=== PATIENT | male | born 1965 | race Caucasian/White ===

== ENCOUNTER → 2017-07-02 15:34 | Outpatient (CLI) | payer BC, SELFPAY ==
--- NOTE | 2017-07-02 15:39 | MR_ITS ---
MR lumbar spine wo con HISTORY: Low back pain with left leg pain and burning and numbness. Left foot numbness ORDERING PHYSICIAN: Riley Castanon PATIENT AGE: 52 years COMPARISON: Radiograph in 03 14 2008 TECHNIQUE: Standard multiplanar multiecho sequences are performed without contrast. 3-D MIP and myelographic images are also rendered and reviewed FINDINGS: There is normal alignment. The spinal cord ends at the L1-L2 level. L1-L2: Unremarkable. L2-L3: Minimal bulging disc. L3-L4: Mild broad-based concentric bulging disc lung facet and ligamentum flavum hypertrophy with mild bilateral lateral recess narrowing. Small left lateral disc osteophyte complex with mild left-sided foraminal narrowing. L4-L5: Degenerative disc disease with bulging disc along with facet and ligamentum flavum hypertrophy with [id number] right foraminal narrowing mild broad-based right-sided foraminal disc protrusion with narrowing of the right foramen. L5-S1: Degenerative disc disease with bulging disc. There is a small left paracentral disc herniation with impingement upon the left S1 nerve root and left lateral recess narrowing. Isointense signal is present along the posterior aspect of the disc herniation/protrusion. This area measures approximately 9 mm and could be related to a disc fragment which is impinging upon the left S1 nerve root. There is facet ligamentum hypertrophy with mild to moderate left foraminal narrowing and mild right foraminal narrowing. IMPRESSION: 1. L3-L4: Mild broad-based concentric bulging disc lung facet and ligamentum flavum hypertrophy with mild bilateral lateral recess narrowing. Small left lateral disc osteophyte complex with mild left-sided foraminal narrowing. 2. L4-L5: Degenerative disc disease with bulging disc along with facet and ligamentum flavum hypertrophy with [id number] right foraminal narrowing mild broad-based right-sided foraminal disc protrusion with narrowing of the right foramen. 3. L5-S1: Degenerative disc disease with bulging disc. There is a small left paracentral disc protrusion/herniation with impingement upon the left S1 nerve root and left lateral recess narrowing. Isointense signal is present along the posterior aspect of the disc herniation/protrusion. This area measures approximately 9 mm and could be related to a disc fragment which is impinging upon the left S1 nerve root. There is facet ligamentum hypertrophy with mild to moderate left foraminal narrowing and mild right foraminal narrowing
[2019-03-05 13:24] LABS: Anion Gap 11.7 mEq/L (5-15); Blood Urea Nitrogen 18 mg/dL (7-18); Calcium 9.3 mg/dL (8.5-10.1); Carbon Dioxide 28 mmol/L (21.0-32.0); Chloride 101 mmol/L (98-107); Creatinine,Serum 0.97 mg/dL (0.70-1.30); Estimated Glomerular Filt Rate 81 ml/min (>60); GFR (African American) 98 ML/MIN (>60); Glucose 91 mg/dL (74-106); Potassium 4.7 mmoL/L (3.5-5.1); Sodium 136 mmol/L (136-145)
== END ==
PROVIDERS: Family Provider Internal Medicine; PCP Internal Medicine; Visit Provider Internal Medicine
DX: M54.42 Lumbago with sciatica, left side (principal)
CPT/HCPCS: 36415; 72148; 76376; 80048

== ENCOUNTER → 2017-08-07 10:07 | Outpatient (POV) | payer BC, SELFPAY | PROVIDERS: Visit Provider Podiatrist | DX: Z00.00 Encounter for general adult medical examination without abnormal findings (principal) ==

== ENCOUNTER → 2017-08-13 14:03 | Outpatient (POV) | payer BC, SELFPAY | PROVIDERS: Visit Provider Neurological Surgery | DX: Z00.00 Encounter for general adult medical examination without abnormal findings (principal) ==

== ENCOUNTER → 2017-08-17 14:40 | Outpatient (CLI) | payer BC, SELFPAY ==
--- NOTE | 2017-08-17 16:48 | MR_ITS ---
MR lumbar spine wo con HISTORY: Interval development right foot drop, low back pain ITS.REASON: RT FOOT DROP ORDERING PHYSICIAN: Lakeisha Reddy PATIENT AGE: 52 years COMPARISON: MRI July 03, 2017 TECHNIQUE: Standard multiplanar multiecho sequences are performed without contrast. 3-D MIP and myelographic images are also rendered and reviewed FINDINGS: Normal alignment. Spinal cord ends at L1 level. L2-L3: Minimal bulging disc slightly eccentric towards the left. L3-L4: Degenerative disc disease with bulging disc along with facet and ligamentum hypertrophy with mild bilateral lateral recess and foraminal narrowing. L4-L5: There is a new right paracentral disc herniation with inferior extrusion of the disc compressing upon the right L5 nerve root.. There are degenerative disc disease at this level with bulging disc. Right-sided lateral recess and foraminal narrowing is present. L5-S1: Degenerative disc disease with broad-based bulging disc. There remains a broad-based left paracentral disc herniation with impingement upon the left S1 nerve root with left lateral recess and foraminal narrowing. The previously noted isointensity along the posterior aspect of the disc is not apparent on today's exam. The disc protrusion/herniation however slightly more prominent on today's study. IMPRESSION: 1. New right paracentral disc herniation at L4-5 with inferior extrusion of the disc compressing upon the right L5 nerve root.. There are degenerative disc disease at this level with bulging disc. Right-sided lateral recess and foraminal narrowing is present. 2. Degenerative disc disease with broad-based bulging disc and broad-based left paracentral disc herniation at L5-S1 with impingement upon the left S1 nerve root with left lateral recess and foraminal narrowing. The previously noted isointensity along the posterior aspect of the disc is not apparent on today's exam. The disc protrusion/herniation however slightly more prominent on today's study.
== END ==
PROVIDERS: Family Provider Internal Medicine; Visit Provider Physician Assistant Medical
DX: M21.371 Foot drop, right foot (principal)
CPT/HCPCS: 72148; 76376

== ENCOUNTER → 2017-09-11 12:58 | Outpatient (POV) | payer BC, SELFPAY | PROVIDERS: Family Provider Internal Medicine; Visit Provider Podiatrist | DX: Z00.00 Encounter for general adult medical examination without abnormal findings (principal) ==

== ENCOUNTER 2017-10-02 09:00 | Outpatient (RCR) | payer BC, SELFPAY | END 2017-10-02 09:01 | disposition home or self-care (01) | LOC: PT 09:00 | PROVIDERS: Family Provider Internal Medicine; Visit Provider Physician Assistant Medical | DX: M21.371 Foot drop, right foot (principal) | CPT/HCPCS: 97014; 97110; 97112; 97163; G0283 ==

== ENCOUNTER 2019-01-13 10:30 | Outpatient (RCR) | payer BC, SELFPAY | END 2019-01-13 10:35 | disposition home or self-care (01) | LOC: PT 10:30 | PROVIDERS: Visit Provider Internal Medicine | DX: M54.5 Low back pain (principal); R20.0 Anesthesia of skin; M54.32 Sciatica, left side | CPT/HCPCS: 97010; 97014; 97110; 97140; 97163; G0283 ==

== ENCOUNTER → 2019-03-05 10:32 | Outpatient (CLI) | payer BC, SELFPAY | PROVIDERS: Visit Provider Internal Medicine | DX: E87.1 Hypo-osmolality and hyponatremia (principal) ==

== ENCOUNTER → 2021-02-01 17:56 | Outpatient (CLI) | payer BC, SELFPAY ==
[2021-02-01 18:33] LABS: Basophils # 0.1 K/mm3 (0-0.2); Basophils % 1.1 % (0.1-2.0); Eosinophils # 0.3 K/mm3 (0.0-0.4); Eosinophils % 3.7 % (0.1-12.0); Hematocrit 40.1 % (42.0-52.0); Hemoglobin 13.2 g/dL (14.1-18.0); Lymphocytes # 2.5 K/mm3 (0.7-4.5); Mean Corpuscular HGB Conc 32.8 g/dL (31.8-35.4); Mean Corpuscular Hemoglobin 31.5 pg (27.0-31.2); Mean Platelet Volume 8.7 fl (7.4-10.4); Monocytes % 11.1 % (1.7-9.3); Neutrophils # 4.7 K/mm3 (1.8-7.8); Neutrophils % 55.1 % (37.0-80.0); Platelet Count 327 K/mm3 (142-424); Red Blood Count 4.18 M/mm3 (4.60-6.20); Red Cell Distribution Width 13.4 % (11.5-17.5); White Blood Count 8.6 K/mm3 (4.8-10.8)
[2021-02-01 19:04] LABS: Chloride 103 mmol/L (98-107); Potassium 4.1 mmoL/L (3.5-5.1); Sodium 139 mmol/L (136-145)
[2021-02-01 19:06] LABS: Alanine Aminotransferase 96 U/L (12-78); Aspartate Amino Transferase 41 U/L (17-59); Blood Urea Nitrogen 18 mg/dl (9-20); Estimated Glomerular Filt Rate 78 ml/min (>60); GFR (African American) 94 ML/MIN (>60)
[2021-02-01 19:07] LABS: Albumin Level 4.4 g/dl (3.5-5.0); Albumin/Globulin Ratio 1.5 (1.1-1.8); Alkaline Phosphatase 95 U/L (38-126); Anion Gap 16.1 mEq/L (5-15); Bilirubin,Total 0.3 mg/dl (0.2-1.3); Calcium 9.5 mg/dl (8.4-10.2); Carbon Dioxide 24 mmol/L (22.0-30.0); Chol/HDL Ratio 5.5 (1-3.5); Cholesterol 238 mg/dl (140-200); Globulin 2.9 g/dL (1.3-3.2); Glucose 102 mg/dl (74-100); HDL Cholesterol 43 mg/dl (40-60); Total Protein,Serum 7.3 g/dl (6.3-8.2)
[2021-02-01 19:09] LABS: Triglycerides 407 mg/dl (30-150)
[2021-02-01 21:15] LABS: Prostate Specific Ag Screen 1.1 ng/ml (0.0-4.0)
== END ==
PROVIDERS: Visit Provider Internal Medicine
DX: I10 Essential (primary) hypertension (principal); E78.5 Hyperlipidemia, unspecified; I73.9 Peripheral vascular disease, unspecified; M21.371 Foot drop, right foot; N40.1 Benign prostatic hyperplasia with lower urinary tract symptoms; Z12.5 Encounter for screening for malignant neoplasm of prostate
CPT/HCPCS: 80053; 80061; 85025; G0103

== ENCOUNTER → 2021-02-06 14:32 | Outpatient (CLI) | payer BC, SELFPAY ==
[2021-02-06 15:00] LABS: Influenza A, PCR Not Detected (NotDetected); Influenza B, PCR Not Detected (NotDetected)
[2021-02-06 15:26] LABS: Coronavirus 19, PCR Detected (NotDetected)
== END ==
PROVIDERS: PCP Internal Medicine; Visit Provider Internal Medicine
DX: Z20.822 Contact with and (suspected) exposure to COVID-19 (principal); U07.1 COVID-19
CPT/HCPCS: U0003

== ENCOUNTER 2021-02-10 07:41 | Outpatient (CLI) | payer BC, SELFPAY ==
[2021-02-10] VITALS (8 sets, daily range): BP systolic 121–134; BP diastolic 72–98; PULSE 62–75; RESP 16–20; TEMP 36.5–36.6; O2SAT 95–99
== END 2021-02-10 10:28 | disposition home or self-care (01) ==
LOC: INF 07:42
PROVIDERS: PCP Internal Medicine; Visit Provider Internal Medicine
DX: U07.1 COVID-19 (principal)
CPT/HCPCS: 96365

== ENCOUNTER → 2021-09-09 16:12 | Outpatient (CLI) | payer BC, SELFPAY ==
--- NOTE | 2021-09-09 16:17 | XR_ITS ---
FINAL REPORT TECHNIQUE: Chest PA & Lateral CLINICAL HISTORY: PLEURISY OF RIGHT LUNG FINDINGS: 2 views of the chest were performed. The heart size is normal. The mediastinum is within normal limits. There are chronic changes in the lung bases. There are no pleural effusions. There is no pneumothorax. The bony thorax appears intact. IMPRESSION: No acute cardiopulmonary process. Reviewed, Interpreted and Dictated by Reji Jimenez MD Transcribed by Sha Demarco Authenticated by Reji Jimenez MD on 09/09/2021 04:54:30 PM [facility]
== END ==
PROVIDERS: PCP Internal Medicine; Visit Provider Internal Medicine
DX: R09.1 Pleurisy
CPT/HCPCS: 71046

== ENCOUNTER → 2021-10-30 16:53 | Outpatient (CLI) | payer BC, SELFPAY ==
[2021-10-30 17:54] LABS: Alanine Aminotransferase 44 U/L (12-78); Albumin Level 4.2 g/dl (3.5-5.0); Albumin/Globulin Ratio 1.5 (1.1-1.8); Alkaline Phosphatase 75 U/L (38-126); Anion Gap 14.1 mEq/L (5-15); Aspartate Amino Transferase 36 U/L (17-59); Blood Urea Nitrogen 22 mg/dl (9-20); Calcium 9.4 mg/dl (8.4-10.2); Carbon Dioxide 23 mmol/L (22.0-30.0); Chloride 105 mmol/L (98-107); Chol/HDL Ratio 6.3 (1-3.5); Cholesterol 272 mg/dl (140-200); Estimated Glomerular Filt Rate 88 ml/min (>60); GFR (African American) 106 ML/MIN (>60); Globulin 2.8 g/dL (1.3-3.2); Glucose 92 mg/dl (74-100); HDL Cholesterol 43 mg/dl (40-60); Potassium 4.1 mmoL/L (3.5-5.1); Sodium 138 mmol/L (136-145); Triglycerides 290 mg/dl (30-150); VLDL Cholesterol 58 mg/dL (0-40)
[2021-10-30 17:58] LABS: Bilirubin,Total < 0.1 mg/dl (0.2-1.3)
[2021-10-30 18:06] LABS: Direct LDL Cholesterol 160.08 mg/dL (100-129)
[2021-10-30 18:26] LABS: Prostate Specific Ag Screen 1.2 ng/ml (0.0-4.0)
[2021-10-30 18:36] LABS: Basophils # 0.2 K/mm3 (0-0.2); Basophils % 1.7 % (0.1-2.0); Eosinophils # 0.4 K/mm3 (0.0-0.4); Hematocrit 37.5 % (42.0-52.0); Lymphocytes # 2.5 K/mm3 (0.7-4.5); Lymphocytes % 26.6 % (10-50); Mean Corpuscular HGB Conc 34.6 g/dL (31.8-35.4); Mean Corpuscular Hemoglobin 32.9 pg (27.0-31.2); Mean Corpuscular Volume 95.1 fl (80-94); Mean Platelet Volume 7.9 fl (7.4-10.4); Monocytes # 0.8 K/mm3 (0.1-1.0); Monocytes % 8.1 % (1.7-9.3); Neutrophils # 5.5 K/mm3 (1.8-7.8); Neutrophils % 59.5 % (37.0-80.0); Platelet Count 336 K/mm3 (142-424); Red Blood Count 3.95 M/mm3 (4.60-6.20); Red Cell Distribution Width 13.8 % (11.5-17.5); White Blood Count 9.3 K/mm3 (4.8-10.8)
--- NOTE | 2021-12-30 12:35 | PC.NURSE ---
I have talked with patient on multiply times and he has chosen to hold off at this time. Patient will call back at a later time.
--- NOTE | 2022-01-10 13:06 | PC.NURSE ---
I talked with Mr. Altman on the first of December and he stated that it was not a good time for him. He will call us back at a later time. When he is ready will have to do a new precert.
== END ==
PROVIDERS: PCP Internal Medicine; Visit Provider Internal Medicine
DX: I10 Essential (primary) hypertension (principal); E78.5 Hyperlipidemia, unspecified; R53.83 Other fatigue; G47.10 Hypersomnia, unspecified; R06.83 Snoring; N40.1 Benign prostatic hyperplasia with lower urinary tract symptoms; Z12.5 Encounter for screening for malignant neoplasm of prostate
CPT/HCPCS: 80053; 80061; 85025; G0103

== ENCOUNTER → 2022-09-25 12:47 | Outpatient (CLI) | payer BC, SELFPAY ==
--- NOTE | 2022-09-25 12:51 | MR_ITS ---
FINAL REPORT CLINICAL HISTORY: radiculopathy, lumbosacral region. low back pain with right leg pain/numbness COMPARISON: 08/17/2017 FINDINGS: Multiplanar MR imaging of the lumbar spine was performed without contrast. On the sagittal T2-weighted images, disc degeneration is seen at multiple levels. The vertebral alignment is normal. There is no evidence of fracture. No bony mass is identified. The conus has an unremarkable appearance. No significant central canal stenosis. T12-L1: There is no significant canal stenosis or neural foraminal narrowing. L1-2: There is no significant canal stenosis or neural foraminal narrowing. L2-3: Annular disc bulge, facet arthropathy, and osteophytes. Mild bilateral neural foraminal narrowing. L3-4: Annular disc bulge, facet arthropathy, and osteophytes. Mild bilateral neural foraminal narrowing. L4-5: Annular disc bulge and facet arthropathy. Moderate right and mild left neural foraminal narrowing. Interval resolution right foraminal inferior extruded disc. Presumed postoperative changes on the right. L5-S1: Annular disc bulge, facet arthropathy, and osteophytes. Postoperative changes on the right. Moderate bilateral neural foraminal narrowing. IMPRESSION: Degenerative disc disease as above, with postoperative changes at L4-5 and L5-S1. Reviewed, Interpreted and Dictated by Dallin Becker III, MD Transcribed by Soniya Lorenzana Authenticated and [facility]
== END ==
PROVIDERS: PCP Internal Medicine; Visit Provider Internal Medicine
DX: M47.27 Other spondylosis with radiculopathy, lumbosacral region (principal); R29.818 Other symptoms and signs involving the nervous system
CPT/HCPCS: 72148; 76376

== ENCOUNTER 2024-10-05 15:50 | Outpatient (CLI) | payer BC, SELFPAY ==
[2024-10-05 17:16] LABS: Basophils # 0.1 K/mm3 (0-0.2); Basophils % 0.9 % (0.1-2.0); Eosinophils # 0.4 Kmm3 (0.0-0.4); Eosinophils % 3.5 % (0.1-12.0); Hematocrit 39.1 % (42.0-52.0); Immature Granulocytes # 0.09 10^3uL; Immature Granulocytes % 0.9 %; Lymphocytes # 2.7 K/mm3 (0.7-4.5); Lymphocytes % 26.8 % (10-50); Mean Corpuscular HGB Conc 33.2 g/dL (31.8-35.4); Mean Corpuscular Hemoglobin 30.5 pg (27.0-31.2); Mean Corpuscular Volume 91.8 fl (80-94); Mean Platelet Volume 9.8 fl (7.4-10.4); Monocytes # 1.2 K/mm3 (0.1-1.0); Monocytes % 11.8 % (1.7-9.3); Neutrophils # 5.6 K/mm3 (1.8-7.8); Neutrophils % 56.1 % (37.0-80.0); Nucleated Red Blood Cells # 0 10^3/uL; Nucleated Red Blood Cells % 0 %; Platelet Count 319 K/mm3 (142-424); Red Blood Count 4.26 M/mm3 (4.60-6.20); Red Cell Distribution Width 12.6 % (11.5-17.5); Red Cell Distribution Width-SD 42.5 fL
[2024-10-05 17:36] LABS: Alanine Aminotransferase 86 U/L (12-78); Albumin Level 4.9 g/dl (3.5-5.0); Alkaline Phosphatase 79 U/L (38-126); Anion Gap 10.3 mEq/L (5-15); Aspartate Amino Transferase 40 U/L (17-59); Bilirubin,Total 0.4 mg/dl (0.2-1.3); Blood Urea Nitrogen 20 mg/dl (9-20); Calcium 9.8 mg/dl (8.4-10.2); Carbon Dioxide 25 mmol/L (22.0-30.0); Chloride 104 mmol/L (98-107); Chol/HDL Ratio 6.2 (1-3.5); Cholesterol 277 mg/dl (140-200); Estimated Glomerular Filt Rate 87 ml/min (>60); GFR (African American) 105 ML/MIN (>60); Globulin 2.4 g/dL (1.3-3.2); Glucose 91 mg/dl (74-100); HDL Cholesterol 45 mg/dl (40-60); Potassium 4.3 mmoL/L (3.5-5.1); Sodium 135 mmol/L (136-145); Total Protein,Serum 7.3 g/dl (6.3-8.2)
[2024-10-05 18:01] LABS: Triglycerides 403 mg/dl (30-150)
[2024-10-05 18:06] LABS: Prostate Specific Ag Screen 1.9 ng/ml (0.0-4.0)
[2024-10-05 23:43] LABS: Hemoglobin A1C 5.7 % (4.0-6.0)
== END 2024-10-05 23:59 | disposition home or self-care (01) ==
LOC: LAB.DROPOF 10-06 11:17
PROVIDERS: PCP Internal Medicine; Visit Provider Internal Medicine
DX: Z12.5 Encounter for screening for malignant neoplasm of prostate (principal); I10 Essential (primary) hypertension; E78.5 Hyperlipidemia, unspecified; E66.01 Morbid (severe) obesity due to excess calories; L30.9 Dermatitis, unspecified; Z83.3 Family history of diabetes mellitus; Z68.37 Body mass index [BMI] 37.0-37.9, adult
CPT/HCPCS: 80053; 80061; 83036; 85025; G0103

== ENCOUNTER 2025-01-18 16:15 | Outpatient (CLI) | payer BC, SELFPAY ==
[2025-01-18 17:40] LABS: Albumin Level 4.9 g/dl (3.5-5.0)
[2025-01-18 17:41] LABS: Chloride 100 mmol/L (98-107); Potassium 4.6 mmoL/L (3.5-5.1); Sodium 136 mmol/L (136-145)
[2025-01-18 17:43] LABS: Alanine Aminotransferase 90 U/L (12-78); Anion Gap 15.6 mEq/L (5-15); Aspartate Amino Transferase 50 U/L (17-59); Blood Urea Nitrogen 29 mg/dl (9-20); Carbon Dioxide 25 mmol/L (22.0-30.0); Creatinine,Serum 1.20 mg/dl (0.66-1.25); Estimated Glomerular Filt Rate 62 ml/min (>60); GFR (African American) 75 ML/MIN (>60)
[2025-01-18 17:44] LABS: Albumin/Globulin Ratio 1.6 (1.1-1.8); Alkaline Phosphatase 77 U/L (38-126); Bilirubin,Total 0.5 mg/dl (0.2-1.3); Calcium 10.0 mg/dl (8.4-10.2); Cholesterol 296 mg/dl (140-200); Globulin 3.0 g/dL (1.3-3.2); Glucose 97 mg/dl (74-100); HDL Cholesterol 46 mg/dl (40-60); Total Protein,Serum 7.9 g/dl (6.3-8.2); Triglycerides 355 mg/dl (30-150)
--- OUTSIDE RECORDS SUMMARY | 2025-01-19 12:06 | XMS_ITS | Clinical Summary ---
Author Organization [facility] Address [address] [place] [id number] Phone [email or web address] Care Team Providers Care Canteen Manager Name Role Phone Riley Castanon Primary Care Provider Unavailabl e Allergies No known active allergies Medications bisoprolol (ZEBETA) 5 MG tablet Take 5 mg by mouth 1 (one) time each day. 11/10/2019 Active diclofenac (VOLTAREN) 75 MG EC tablet Take 75 mg by mouth 2 (two) times a day. 11/09/2019 Active famotidine (PEPCID) 20 MG tablet Take 20 mg by mouth every night. 08/22/2019 Active HYDROcodone-camille taminophen (NORCO) 7.5-325 MG per tablet Take 1 tablet by mouth every 6 (six) hours if needed. for pain 08/20/2019 Active irbesartan-hydr oCHLOROthiazide (AVALIDE) 300-12.5 MG per tablet TAKE 1 TABLET BY MOUTH ONCE DAILY FOR 90 DAYS 11/11/2019 Active omeprazole (PriLOSEC) [address] capsule TAKE 1 CAPSULE BY MOUTH ONCE DAILY FOR 90 DAYS 09/26/2019 Active LORazepam (ATIVAN) 0.5 MG tablet TAKE 1 TABLET BY MOUTH TWICE DAILY NEEDED FOR NERVES 02/01/2021 Active amLODIPine (NORVASC) 5 MG tablet Take 5 mg by mouth every night. 11/29/2020 Active predniSONE (DELTASONE) 10 MG tablet TAKE 4 TABS IN THE MORNING FOR 5 DAYS THEN 3 TABS IN THE AM FOR 2 DAYS THEN 2 DAILY TABS FOR 2 DAYS THEN 1 TAB DAILY FOR 2 DAYS THEN STOP 02/06/2021 Active Livalo 4 MG tablet TAKE 1 TABLET BY MOUTH TWICE A WEEK 01/10/2021 Active Active Problems Problem Noted Date Diagnosed Date Health examination of defined subpopulation 10/2011 Overview (10/28/2017): Dysfunction of eustachian tube 11/06/2009 Overview (10/28/2017): Cellulitis and abscess of face 07/27/2009 Overview (10/28/2017): Other examination of ears and hearing 02/14/2009 Overview (10/28/2017): Examination for medicolegal reason 06/13/2008 Overview (10/28/2017): Screening for hypertension 01/13/2008 Overview (10/28/2017): Social History Tobacco Use Types Packs/Day Years Used Date Smoking Tobacco: Every Day Cigarettes 1 40 Smokeless Tobacco: Never Tobacco Cessation:Ready to Q uit: Not Asked; Counseling Given: Not Answered Comments:Vapes as well Intimate Partner Violence Answer Date R ecorded Insults You Not on file 09/11/2020 Threatens You Not on file 09/11/2020 Screams at You Not on file 09/11/2020 Physically Hurt Not on file 09/11/2020 Intimate Partner Violence Score Not on file 09/11/2020 Depression Answer Date Recorded PHQ Total Score 0 11/02/2023 Stress Answer Date Recorded Stress in your Life Not on file 04/04/2024 Dealing with Stress 3 04/04/2024 Sex and Gender Information Value Date Recorded Sex Assigned at Not on file Legal Sex Male 7:20 AM CDT Gender Identity Not on file Sexual Orientation Not on file Last Filed Vital Signs Vital Sign Reading Time Taken Comments Blood Pressure 110/62 11/02/2023 3:08 PM EDT Pulse 89 11/02/2023 3:08 PM EDT Temperature 35.8 C (96.4 F) 11/02/2023 3:08 PM EDT Respiratory Rate 16 11/02/2023 3:08 PM EDT Oxygen Saturation 96% 11/02/2023 3:08 PM EDT Inhaled Oxygen Concentration - - Weight 113 kg (250 lb 3.2 oz) 11/02/2023 3:08 PM EDT Height 177.8 cm (5' 10 ) 11/02/2023 3:08 PM EDT Body Mass Index 35.9 11/02/2023 3:08 PM EDT Plan of Treatment Health Maintenance Due Date Last Done Comments CT Colonography 1966 Colonoscopy 1966 Colorectal Cancer Screening Combo 1966 DNA Cologuard 1966 Dental Cleaning/Exam 1966 FIT or FOBT Test 1966 HIV Screening 1966 Hepatitis C Screening 1966 Sigmoidoscopy 1966 Hep B Infection Screening - Triple Screen 1984 Hepatitis B Immunization (1 of 3 - 19+ 3-dose series) 1985 Pneumococcal: Ped (0 to 5 Yr s) and At-Risk Member (6 to 64 Yrs) (1 of 2 - PCV) 1985 Tetanus Diphtheria and Pertu ssis Immunization (1 - Tdap) 1985 Zoster Immunization (1 of 2) 2016 Annual Preventive Exam 07/15/2019 07/15/2018 Covid-19 Immunization (1 - 2 024-25 season) 2024 Influenza Immunization (#1) 2025 HIB Immunization Aged Out No longer e ligible based on patient's age to complete this topic HPV Immunization Aged Out No longer e ligible based on patient's age to complete this topic Hepatitis A Immunization Aged Out No longer eligible based on patient's age to complete this topic Polio Immunization Aged Out No longer eligible based on patient's age to complete this topic Insurance OPT OUT NO COPAY NB Care Teams Canteen Manager Relationship Specialty [place] [id number] PCP - General [employer] 11/28/21
== END 2025-01-18 23:59 | disposition home or self-care (01) ==
LOC: LAB.DROPOF 01-19 12:05
PROVIDERS: PCP Internal Medicine; Visit Provider Internal Medicine
DX: E78.5 Hyperlipidemia, unspecified (principal); I10 Essential (primary) hypertension; E66.01 Morbid (severe) obesity due to excess calories
CPT/HCPCS: 80053; 80061